=== PATIENT | female | born 1990 ===

== ENCOUNTER 2019-09-11 18:08 | Inpatient (IN) | payer SELFPAY ==
[2019-09-11] MEDS ORDERED: Buffered Lidocaine 1% SYRIN* 1 ML/SYRINGE INTRADERM ONE (22:47)
[2019-09-11] MEDS ORDERED: Penicillin G Potassium IV* 5,000,000 UNITS in NS 0.9% 100 ML* 100 ML IVPB ONE (22:47)
[2019-09-11] MEDS ORDERED: Lactated Ringers 1000 ML Bag* 1,000 ML IV ONE (22:47)
--- NOTE | 2019-09-11 22:56 | HP ---
General Information - Reason for Visit ctx q 2-3min and increasing in intensity. Pt denies LOF or VB. - General Information Maternal Age: 29 Grav: 3 Para: 2 SAB: 0 IEA: 0 Estimated Due Date: 09/08/19 Determined By: LMP Gestational Age in Weeks/Days: 40.3 Maternal Blood Type and Rh: A Positive - Results this Serology/RPR Result: Non-Reactive Rubella Result: Immune HBsAg Result: Negative HIV Result: Negative GBS Culture Result: Positive Past Medical History Delivery History: Hx Uncomplicated Vaginal Delivery Pertinent Past Medical History: See Records - ideopathic thrombocytopenia, anyi's, asthma Pertinent Past Surgical History: None Pertinent Family History: See Records - PGF: colon CA; PGM: breast CA , HTN; M: fibromyalgia; F: Anyi's, HTN, high chol; B: ITP; MGM: ovarian CA ; MGF: DM, skin CA; aunt/uncle: DM - Antepartal Records Antepartal Records: Reviewed, Complicated by: - Anyi's, ideopathic thrombocytopenia, echogenic foci, possible sandle toe, GBS positive Review of Systems Constitutional: Uncomfortable CV Complaint: No Respiratory: Shortness of Breath: No Gastrointestinal: No Nausea/Vomiting, Normal Bowel Movement Genitourinary: No Dysuria, No Bleeding, No Leaking Fluid Musculoskeletal: No Epigastric Pain, Back Pain, Contractions Neurological: No Headache, No Visual Changes Movement: Normal Exam Allergies/Adverse Reactions: Allergies aspirin Allergy (Verified 09/11/19 20:23) Shortness of Breath erythromycin base Allergy (Verified 09/11/19 18:47) Nausea And Vomiting Sulfa (Sulfonamide Antibiotics) Allergy (Verified 09/11/19 18:47) Rash Vital Signs 09/11/19 18:40 Temperature 99.7 F Pulse Rate 92 Respiratory 17 Rate Blood Pressure 120/68 (mmHg) O2 Sat by Pulse 100 Oximetry - Measurements Height: 5 ft 7 in Weight: 195 lb Weight in lbs: [phone] Body Mass Index (BMI): 30.5 Pre- Weight: 140 lb Weight Gained This : 55 lbs and 0 ozs - Exam Breast: Breast Exam Deferred CVA: No CVA Tenderness Extremities: No Edema Heart: Normal Rhythm/Heart Sounds HEENT: No Significant Findings Lungs: Clear Bilaterally Rectal: Rectal Exam Deferred Reflexes: DTR 2+ Thyroid: No Thyromegaly - Abdominal Exam Abdomen Exam: Fundal Height Consistent with Dates - Ultrasound/Biophysical Profile Ultrasound Status: Not Done Targeted Exam Findings Estimated Weight: 9lbs Cervical Exam: 3cm Effacement: 70% Station: -1 Presenting Part: Vertex Membrane Status: Bulging Bleeding/Discharge: None EFM Findings - External Monitor Findings Baseline Heart Rate: 145 External Monitor Findings: Accelerations Present, No Pattern of Variable or Late Decelerations, Variability Moderate, Baseline Stable Contractions: Regular, Moderate, 45-90 Seconds Assessment/Plan - Assessment 29 y.o. , at 40w3d EGA, early labor, cat I NST - Obstetrical Risk Factors Obstetrical Risk Factors: GBS Positive - pt counseled on risks associated with GBS and declines antibiotic prophylaxis. - Plan Plan: Admit - Anticipate Vaginal Delivery - Date/Time of Admission Date of Admission: 09/11/19 Time of Admission: 22:30
[2019-09-11] MEDS ORDERED: Lactated Ringers 1000 ML Bag* 1,000 ML IV SCH (23:00)
--- NOTE | 2019-09-12 00:32 | PN ---
Progress Note - Progress Note Date of Service: 09/12/19 Note: Pt reports she is getting more uncomfortable and having a harder time coping. Discussed pain mgmt options and pt decides to try the tub again and then nitrous oxide. Reviewed R/B of pain mgmt options.
[2019-09-12] MEDS: Penicillin G Potassium IV* 2,500,000 UNITS in NS 0.9% 100 ML* 100 ML IVPB SCH ×2 (01:47→05:14)
[2019-09-12 02:01] LABS: Urine Benzodiazepine Screen None Detected (None Detect); Urine Opiates Screen None Detected (None Detect)
[2019-09-12 02:24] LABS: ABS Eosinophils 0.1 10^3/ul (0-0.6); ABS Lymphocytes 1.6 10^3/ul (1.0-4.8); ABS Monocytes 0.7 10^3/ul (0-0.8); ABS Neutrophils 8.5 10^3/ul (1.5-7.7); Eosinophil % 0.5 %; Hematocrit 39 % (35-47); Hemoglobin 13.7 g/dL (12.0-16.0); Large Platelets Present; Mean Corpuscular HGB Conc 35 g/dL (31-36); Mean Corpuscular Hemoglobin 33 pg (27-31); Mean Corpuscular Volume 94 fL (80-97); Mean Platelet Volume 11.4 fL (7.4-10.4); Platelet Count 129 10^3/uL (150-450); Red Cell Distribution Width 13 % (10-15)
[2019-09-12] MEDS ORDERED: OBEPIDURAL* 0 ML EPIDURAL ONE (03:18)
[2019-09-12] MEDS ORDERED: Oxytocin in LR* 20 UNITS/1,000 ML BAG IVPB ONE (03:42)
[2019-09-12] MEDS ORDERED: Bupivacaine 0.25% SDV PF* 10 ML VIAL INJ ONE (04:04)
[2019-09-12] MEDS ORDERED: Glycerin ADULT SUPP PR PRN (04:50)
[2019-09-12] MEDS ORDERED: Witch Hazel PAD* JAR TOPICAL PRN (04:50)
[2019-09-12] MEDS ORDERED: Dibucaine 1% 28.35 GM TUBE PR PRN (04:50)
[2019-09-12] MEDS ORDERED: Acetaminophen TAB* 325 MG PO PRN (04:50)
--- NOTE | 2019-09-12 04:57 | PROCNOTE ---
[facility] OB: Delivery Note - Delivery A Date of : 09/12/19 Time of : 04:09 Sex: Male Score 1 Minute: 9 Score 5 Minutes: 9 Gestational Age in Weeks and Days at Delivery: 40 Weeks and 4 Days Delivery Method: Spontaneous Vaginal Labor: Spontaneous Did Patient attempt ?: N/A, No Previous Amniotic Fluid: Clear Estimated Blood Loss: 250 Anesthesia/Analgesia: Nitrous-Labor Delivered By: Ijeoma Avery - Nursery Level of Nursery: Regular/Bedside - Perineum Perineal Injury: Perineal Laceration, 1st Degree Perineal Repair: By Delivering Practioner - Events Delivery Events of Note: Antibiotics Indicated - Not Given Delivery Events of Note Comment: Right nuchal arm
[2019-09-12] MEDS ORDERED: Lactated Ringers 1000 ML Bag* 1,000 ML IV SCH (05:00)
[2019-09-12] MEDS: Ibuprofen TAB* 600 MG PO PRN ×3 (05:18→19:47)
[2019-09-12] MEDS ORDERED: Ammonia Inhalant* 1 EA AMP ONE (07:28)
[2019-09-12] MEDS ORDERED: Oxytocin 20 UNITS in LR* ** ENTER RATE IVPB ONE (08:00)
[2019-09-12] MEDS ORDERED: Simethicone TAB* 80 MG TAB.CHEW PO SCH (08:30)
[2019-09-12] MEDS: Docusate CAP* 100 MG PO SCH ×3 (09:34→20:45)
[2019-09-12] MEDS ORDERED: Lidocaine 1% INJ* 10 MG/ML 30 ML SDV ONE (11:00)
[2019-09-13] MEDS: Ibuprofen TAB* 600 MG PO PRN ×3 (04:32→20:29)
[2019-09-13] MEDS ORDERED: Ferrous Gluconate TAB* 324 MG TAB PO SCH (09:00)
[2019-09-13 09:02] LABS: Hematocrit 38 % (35-47); Hemoglobin 13.2 g/dL (12.0-16.0); Mean Corpuscular HGB Conc 35 g/dL (31-36); Mean Corpuscular Hemoglobin 33 pg (27-31); Mean Corpuscular Volume 95 fL (80-97); Mean Platelet Volume 11.6 fL (7.4-10.4); Platelet Count 125 10^3/uL (150-450); Red Blood Count 4.05 10^6 /uL (3.70-4.87); Red Cell Distribution Width 13 % (10-15); White Blood Count 11.6 10^3/uL (3.5-10.8)
[2019-09-13 09:49] LABS: ABS Basophils 0.1 10^3/ul (0-0.2); ABS Eosinophils 0.1 10^3/ul (0-0.6); ABS Lymphocytes 1.9 10^3/ul (1.0-4.8); ABS Monocytes 0.7 10^3/ul (0-0.8); ABS Neutrophils 8.8 10^3/ul (1.5-7.7); Eosinophil % 1.1 %; Large Platelets Present; Lymphocyte % 16.1 %
[2019-09-13] MEDS: Docusate CAP* 100 MG PO SCH ×3 (12:55→20:15)
[2019-09-13] MEDS: Levothyroxine TAB* 25 MCG TAB PO SCH (12:58)
[2019-09-14] MEDS: Ibuprofen TAB* 600 MG PO PRN (04:22)
[2019-09-14] MEDS: Levothyroxine TAB* 25 MCG TAB PO SCH (05:51)
[2019-09-14 07:51] VITALS: BP 94/61
[2019-09-14] MEDS: Docusate CAP* 100 MG PO SCH (09:17)
== END 2019-09-14 11:10 | disposition home or self-care (01) | DRG 806 ==
LOC: MCHOBOUT 18:08 → MCHOB 23:23
PROVIDERS: ADMIT Midwife; ATTEND Midwife
PROC: 10E0XZZ Delivery of Products of Conception, External Approach (ICD-10-PCS; principal; 2019-09-12)
PROC: 0HQ9XZZ Repair Perineum Skin, External Approach (ICD-10-PCS; 2019-09-12)
DX: O48.0 Post-term pregnancy (principal); O99.12 Other diseases of the blood and blood-forming organs and certain disorders involving the immune mechanism complicating childbirth; Z37.0 Single live birth; D69.3 Immune thrombocytopenic purpura; O99.824 Streptococcus B carrier state complicating childbirth; O99.284 Endocrine, nutritional and metabolic diseases complicating childbirth; E06.3 Autoimmune thyroiditis; O70.0 First degree perineal laceration during delivery; O99.52 Diseases of the respiratory system complicating childbirth; J45.909 Unspecified asthma, uncomplicated; Z3A.40 40 weeks gestation of pregnancy
CPT/HCPCS: 36415; 80307; 85025; 86850; 86900; 86901; A9270-GY; J2540; J3490